=== PATIENT | female | born 1985 | race Two or more races ===

== ENCOUNTER → 2018-09-18 | Outpatient (CLI) | payer SELFPAY ==
[2018-09-18 13:16] LABS: FREE T3 4.2 pg/mL (2.77-5.27)
[2018-09-18 13:30] LABS: THYROID STIMULATING HORMONE 1.87 uIU/mL (0.47-4.68)
== END ==
LOC: OD 11:37
PROVIDERS: ATTEND Internal Medicine
DX: E03.9 Hypothyroidism, unspecified (principal)
CPT/HCPCS: 36415; 84436; 84443; 84481